=== PATIENT | male | born 1950 | race Two or more races ===

== ENCOUNTER 2016-09-04 12:41 | Emergency (ER) | payer BC ==
[2016-09-04 12:50] VITALS: BMI 24.5
[2016-09-04 12:53] VITALS: TEMP 98.3
[2016-09-04 13:08] LABS: AUTOMATED BASOPHIL 0.3 % (0-2); AUTOMATED EOSINOPHIL 1.8 % (0-5); AUTOMATED LYMPH 26.9 % (17-44); AUTOMATED MONOCYTE 10.2 % (3-10); AUTOMATED NEUTROPHIL 60.8 % (45-76); MPV 7.9 fL (7.4-10.4)
[2016-09-04 13:21] LABS: BLOOD UREA NITROGEN 12 MG/DL (9-20); CALCIUM 8.8 MG/DL (8.4-10.2); CALCULATED OSMOLALITY 273 MOs/Kg (270-290); CHLORIDE 103 mEq/L (98-107); GLUCOSE 99 MG/DL (70-99); SODIUM LEVEL 142 mEq/L (137-146); TOTAL PROTEIN 8.3 G/DL (6.3-8.2)
--- NOTE | 2016-09-04 13:38 | EDPRACDOC ---
- General Information Chief Complaint: Neuro Symptoms/Deficits Stated Complaint: DIZZY Time Seen by Provider: 09/04/16 13:35 Information Source: Patient Mode Of Arrival: Car Home Medications: Home Medications Meclizine HCl [Antivert] 25 mg PO TID PRN #15 tab 09/04/16 Allergies/Adverse Reactions: Allergies Allergy/AdvReac Type Severity Reaction Status Date / Time No Known Allergies Allergy Verified 09/04/16 12:50 - History of Present Illness Onset: MON HPI: DIZZY, HARD TO KEEP BALANCE SINCE MONDAY NIGHT. MONDAY NIGHT WAS THE WORST OF THE SYMPTOMS. N/V MONDAY. NO BLURRED OR DOUBLE VISION. NO HEADACHE. NO H/O HTN. DIZZINESS NOT WORSE WITH MOVEMENT. CAME IN TODAY BECAUSE GETTING DIZZY AND NAUSEATED AGAIN. ED Past Medical History - History Reviewed Yes Nurses notes reviewed and agree except as marked - Patient Medical History Neurological History: Reports: No Significant History EDM Review of Systems - Review of Systems ROS Negative Except as Marked: Yes All systems reviewed and were negative except as marked Constitutional: No Symptoms Reported Respiratory: No Symptoms Reported Cardiovascular: No Symptoms Reported Genitourinary: No Symptoms Reported Neurological: Dizziness Musculoskeletal: No Symptoms Reported - Physical Exam Constitutional: Alert (Awake), No apparent distress Oriented to: Time, Person, Place Last recorded Vital Signs: Last Vital Signs Temp 98.3 F 09/04/16 12:50 Pulse 77 09/04/16 12:50 Resp 20 09/04/16 12:50 BP 164/84 09/04/16 12:50 Pulse Ox 98 09/04/16 12:50 Oxygen Pulse Oxygen Saturation 98 O2 Device Oxygen Flow Rate Fraction of Inspired Oxygen ( FIO2) - HEENT Head: Normal ( normocephalic) Eye Exam: Normal (PERRL, EOMI, Sclera white) Oropharynx: Normal (Pharynx:Moist without exudate,Gums-no swelling) Nose: No Symptoms Reported (septum midline) Neck: Normal (FROM, trachea at midline) - Respiratory/Cardiovascular Respiratory: Normal - CTA (BBS clear to auscultation without adventitious sounds ) Cardiovascular: Normal (RRR without murmur, gallop or rub) - GI Auscultation: Normal (NABS) Palpation: Normal (Soft,No rebound or guarding, non distended) Tenderness: Non tender Coon's Sign: Negative - Musculoskeletal Back: Normal (Non-Tender) Extremities: Normal (Normal tone, Pulses 2+ No cyanosis or edema, FROM) - Integumentary Skin: Normal, Warm, Dry Lymphatics: Normal (no adenopathy) - Neurologic Memory Impaired: Normal Motor Function: Normal (Normal tone, Pulses 2+ No cyanosis or edema, FROM) Cranial Nerve: Normal (CN II-X11 intact sensation, strength 5/5) Cerebellar: Normal Mood Description: Normal Perception: Normal - Results 09/04/16 12:55 09/04/16 12:55 WBC 7.1 xk/uL (3.8-10.8) 09/04/16 12:55 RBC 5.44 xM/uL (4.70-6.10) 09/04/16 12:55 Hgb 16.6 g/dL (14.0-18.0) 09/04/16 12:55 Hct 49.3 % (42-52) 09/04/16 12:55 MCV 91 fL (80-94) 09/04/16 12:55 MCH 30.6 pg (27-32) 09/04/16 12:55 MCHC 33.7 g/dl (33-36) 09/04/16 12:55 RDW 13.1 % (11.5-14.5) 09/04/16 12:55 Plt Count 238 xk/uL (130-400) 09/04/16 12:55 MPV 7.9 fL (7.4-10.4) 09/04/16 12:55 Neut % (Auto) 60.8 % (45-76) 09/04/16 12:55 Lymph % (Auto) 26.9 % (17-44) 09/04/16 12:55 Mason % (Auto) 10.2 % (3-10) H 09/04/16 12:55 Eos % (Auto) 1.8 % (0-5) 09/04/16 12:55 Baso % (Auto) 0.3 % (0-2) 09/04/16 12:55 Absolute Neuts (auto) 4.26 xk/uL (1.7-8.2) 09/04/16 12:55 Absolute Lymphs (auto) 1.85 xk/uL (0.65-4.75) 09/04/16 12:55 PT 10.3 SEC (9.2-11.2) 09/04/16 12:55 INR 1.0 09/04/16 12:55 APTT 27.0 SEC (22-35) 09/04/16 12:55 Sodium 142 mEq/L (137-146) 09/04/16 12:55 Potassium 4.0 mEq/L (3.5-5.1) 09/04/16 12:55 Chloride 103 mEq/L (98-107) 09/04/16 12:55 Carbon Dioxide 29 mMOL/L (22-33) 09/04/16 12:55 Anion Gap 14 mEq/L (8-16) 09/04/16 12:55 BUN 12 MG/DL (9-20) 09/04/16 12:55 Creatinine 0.70 MG/DL (0.66-1.25) 09/04/16 12:55 Estimated GFR (MDRD) > 60 mL/min (>=60) 09/04/16 12:55 Glucose 99 MG/DL (70-99) 09/04/16 12:55 Calculated Osmolality 273 MOs/Kg (270-290) 09/04/16 12:55 Calcium 8.8 MG/DL (8.4-10.2) 09/04/16 12:55 Total Bilirubin 0.6 MG/DL (0.2-1.3) 09/04/16 12:55 AST 29 IU/L (17-59) 09/04/16 12:55 ALT 45 IU/L (21-72) 09/04/16 12:55 Alkaline Phosphatase 94 IU/L (50-160) 09/04/16 12:55 Troponin I 0.02 ng/mL (<.04) 09/04/16 12:55 Qxe-[id number]-Rtriwmxttbf Pept 34 pg/mL (0-900) 09/04/16 12:55 Total Protein 8.3 G/DL (6.3-8.2) H 09/04/16 12:55 Albumin 4.4 G/DL (3.5-5.0) 09/04/16 12:55 Lab Results 09/04/16 09/04/16 09/04/16 12:55 12:55 12:55 WBC 7.1 RBC 5.44 Hgb 16.6 Hct 49.3 MCV 91 MCH 30.6 MCHC 33.7 RDW 13.1 Plt Count 238 MPV 7.9 Neut % (Auto) 60.8 Lymph % (Auto) 26.9 Mason % (Auto) 10.2 H Eos % (Auto) 1.8 Baso % (Auto) 0.3 Absolute Neuts (auto) 4.26 Absolute Lymphs (auto) 1.85 PT 10.3 INR 1.0 APTT 27.0 Sodium 142 Potassium 4.0 Chloride 103 Carbon Dioxide 29 Anion Gap 14 BUN 12 Creatinine 0.70 Estimated GFR (MDRD) > 60 Glucose 99 Calculated Osmolality 273 Calcium 8.8 Total Bilirubin 0.6 AST 29 ALT 45 Alkaline Phosphatase 94 Troponin I 0.02 Cvw-I-Crefagrbwfc Pept 34 Total Protein 8.3 H Albumin 4.4 - EKG EKG #1 EKG Time: 12:55 -: Yes EKG interpreted by me Rate: bpm: 74 [place]: Normal Rhythm: NSR Block: None ST: Normal Comments: NORMAL EKG Decision Time to Discharge: 15:09 - Departure Yes I personally saw and evaluated the patient. Disposition: Home Condition: Stable Final Diagnosis: Dizziness Hypertension Qualifiers: Hypertension type: essential hypertension Qualified Code(s): I10 - Essential ( primary) hypertension Instructions: Dizziness (ED), Chronic Hypertension (ED) Education/Counseling Given To: Patient, Family Member Education/Counseling Given Regarding: Diagnosis, Treatment Referrals: None,No Provider [Primary Care Provider] - One Week Prescriptions: Meclizine HCl [Antivert] 25 mg PO TID PRN #15 tab PRN Reason: Vertigo Additional Instructions: 511 CHECK YOUR BLOOD PRESSURE THREE TIMES A DAY (ONCE IN THE MORNING, ONCE AT MID DAY, AND AGAIN IN THE EVENING. RECORD THIS IN A JOURNAL. TAKE WITH YOU TO YOUR NEXT PRIMARY CARE PROVIDER VISIT TAKE AN 81 MG ASPIRIN DAILY.
[2016-09-04] MEDS ORDERED: MECLIZINE 25 MG TAB PO ONE (13:43)
--- NOTE | 2016-09-04 14:38 | DIRPT ---
CLINICAL DATA: dizziness EXAM: CT HEAD WITHOUT CONTRAST TECHNIQUE: Contiguous axial images were obtained from the base of the skull through the vertex without intravenous contrast. COMPARISON: None. FINDINGS: Moderate atrophy and low attenuation in the white matter. No focal attenuation abnormalities to suggest large territory infarct. No hemorrhage or extra axial fluid. No hydrocephalus. Calvarium intact. IMPRESSION: Age-related involutional change. No acute findings. Electronically Signed By: Carlos Churchill M.D. On: 09/04/2016 14:35
--- NOTE | 2016-09-04 14:46 | DIRPT ---
CLINICAL DATA: Chest pain EXAM: PORTABLE CHEST 1 VIEW COMPARISON: none FINDINGS: The heart size and mediastinal contours are within normal limits. Both lungs are clear. The visualized skeletal structures are unremarkable. IMPRESSION: No active disease. Electronically Signed By: Aimee Summers M.D. On: 09/04/2016 14:43
[2016-09-04 15:43] VITALS: BP 126/72; PULSE 74
== END 2016-09-04 15:42 | disposition home or self-care (01) ==
LOC: ED 12:41
DX: R42 Dizziness and giddiness (principal); I10 Essential (primary) hypertension
CPT/HCPCS: 36415; 70450; 71010; 80053; 83880; 84484; 85025; 85610; 85730; 93005; 99285; J3490